=== PATIENT | female | born 1970 | race Caucasian/White ===

== ENCOUNTER 2021-01-13 16:31 | Inpatient (IN) | payer BC, OTHER ==
[2021-01-13] MEDS ORDERED: KETOROLAC 15 MG/ML 1 ML VIAL IM STA (19:32)
[2021-01-13] MEDS ORDERED: SODIUM CHLORIDE 0.9% 1,000 ML IV STA (19:32)
[2021-01-13] MEDS ORDERED: AMPICILLIN-SULBACTAM 3 GM in SODIUM CHLORIDE 0.9% 100 ML IVPB STA (19:32)
--- NOTE | 2021-01-13 19:38 | ED ---
General Adult HPI - General Chief complaint: Recheck/Abnormal Lab/Rx Stated complaint: facial swelling Time Seen by Provider: 01/13/21 19:18 Source: patient Mode of arrival: ambulatory Limitations: no limitations - History of Present Illness Initial comments: 50-year-old female since to the emergency room for a chief complaint of facial swelling. Patient noticed facial swelling 3 days ago on the right side of the face. States she went to her primary care provider today who sent her to the emergency room for a CAT scan and a dose of IV antibiotics. Patient denies any dental pain. Admits to fevers and chills. States she did start antibiotics one hour ago but they have not helped.Patient has no other complaints at this time including shortness of breath, chest pain, abdominal pain, nausea or vomiting, headache, or visual changes. - Related Data Home Medications Medication Instructions Recorded Confirmed Acetaminophen [Tylenol] 650 mg PO Q6H PRN 01/13/21 01/13/21 Amoxic-Pot Clav 875-125Mg 1 tab PO Q12HR 01/13/21 01/13/21 [Augmentin 875-125] Famotidine [Pepcid] 20 mg PO BID 01/13/21 01/13/21 Ibuprofen [Motrin Ib] 400 mg PO Q8HR PRN 01/13/21 01/13/21 diphenhydrAMINE [Benadryl] 25 mg PO Q4H PRN 01/13/21 01/13/21 methylPREDNISolone [Medrol Dose See Taper PO DAILY 01/13/21 01/13/21 Pack] Allergies Allergy/AdvReac Type Severity Reaction Status Date / Time No Known Allergies Allergy Verified 01/13/21 20:45 Review of Systems ROS Statement: Those systems with pertinent positive or pertinent negative responses have been documented in the HPI. ROS Other: All systems not noted in ROS Statement are negative. Past Medical History Past Medical History: No Reported History History of Any Multi-Drug Resistant Organisms: None Reported Past Surgical History: Ablation Past Psychological History: No Psychological Hx Reported Smoking Status: Never smoker Past Alcohol Use History: Occasional Past Drug Use History: None Reported General Exam Limitations: no limitations General appearance: alert, in no apparent distress Head exam: Present: atraumatic Eye exam: Present: normal appearance, PERRL, EOMI. Absent: scleral icterus, conjunctival injection ENT exam: Present: normal oropharynx (I do not see any evidence of dental abscess), normal external ear exam, other (Patient has erythema and edema noted of the right maxillary area.) Neck exam: Present: normal inspection, full ROM. Absent: tenderness Respiratory exam: Present: normal lung sounds bilaterally. Absent: respiratory distress, wheezes Cardiovascular Exam: Present: regular rate, normal rhythm, normal heart sounds Course Vital Signs 01/13/21 01/13/21 18:00 19:47 Temperature 99.8 F H Pulse Rate 84 81 Respiratory 20 20 Rate Blood Pressure 123/72 125/86 O2 Sat by Pulse 99 99 Oximetry Medical Decision Making - Medical Decision Making Vitals are stable. Patient does have a low-grade fever. HPI and physical exam as documented. Pertinent for erythema and edema noted to the right maxillary area. CBC does show leukocytosis with a left shift. CMP unremarkable. Facial CT does show a 2.5 cm phlegmon versus developing abscess. Patient started on Unasyn and vancomycin. At this time we will admit patient for IV antibiotics. - Lab Data Result diagrams: 01/13/21 19:57 01/13/21 19:57 Lab Results 01/13/21 01/13/21 01/13/21 Range/Units 19:57 19:57 19:57 WBC 19.3 H (3.8-10.6) k/uL RBC 4.47 (3.80-5.40) m/uL Hgb 14.6 (11.4-16.0) gm/dL Hct 44.7 (34.0-46.0) % MCV 99.8 (80.0-100.0) fL MCH 32.5 (25.0-35.0) pg MCHC 32.6 (31.0-37.0) g/dL RDW 11.8 (11.5-15.5) % Plt Count 322 (150-450) k/uL MPV 8.4 Neutrophils % 80 % Lymphocytes % 12 % Monocytes % 5 % Eosinophils % 1 % Basophils % 0 % Neutrophils # 15.4 H (1.3-7.7) k/uL Lymphocytes # 2.3 (1.0-4.8) k/uL Monocytes # 1.0 (0-1.0) k/uL Eosinophils # 0.1 (0-0.7) k/uL Basophils # 0.1 (0-0.2) k/uL Sodium 136 L (137-145) mmol/L Potassium 4.0 (3.5-5.1) mmol/L Chloride 102 (98-107) mmol/L Carbon Dioxide 24 (22-30) mmol/L Anion Gap 10 mmol/L BUN 10 (7-17) mg/dL Creatinine 0.54 (0.52-1.04) mg/dL Est GFR (CKD-EPI)AfAm >90 (>60 ml/min/1.73 sqM) Est GFR (CKD-EPI)NonAf >90 (>60 ml/min/1.73 sqM) Glucose 135 H (74-99) mg/dL Plasma Lactic Acid Vasile 1.3 (0.7-2.0) mmol/L Calcium 9.5 (8.4-10.2) mg/dL Total Bilirubin 0.6 (0.2-1.3) mg/dL AST 21 (14-36) U/L ALT 20 (4-34) U/L Alkaline Phosphatase 41 (38-126) U/L Total Protein 7.7 (6.3-8.2) g/dL Albumin 4.3 (3.5-5.0) g/dL Disposition Clinical Impression: Facial cellulitis, Leukocytosis Narrative: phlegmon vs abscess Disposition: ADMITTED IP TO THIS HOSP Is patient prescribed a controlled substance at d/c from ED?: No Referrals: Torsten Walker MD [Primary Care Provider] - 1-2 days Time of Disposition: 21:56
[2021-01-13] MEDS ORDERED: KETOROLAC 15 MG/ML 1 ML VIAL IVP STA (20:16)
[2021-01-13 20:20] LABS: Basophils # (A) 0.1 k/uL (0-0.2); Basophils % (A) 0 %; Eosinophils # (A) 0.1 k/uL (0-0.7); Eosinophils % (A) 1 %; HCT 44.7 % (34.0-46.0); HGB 14.6 gm/dL (11.4-16.0); Lymphocytes # (A) 2.3 k/uL (1.0-4.8); Lymphocytes % (A) 12 %; MCH 32.5 pg (25.0-35.0); MCHC 32.6 g/dL (31.0-37.0); MCV 99.8 fL (80.0-100.0); Mean Platelet Volume 8.4; Monocytes % (A) 5 %; Neutrophils # (A) 15.4 k/uL (1.3-7.7); Neutrophils % (A) 80 %; Platelet Count 322 k/uL (150-450); RBC 4.47 m/uL (3.80-5.40); RDW 11.8 % (11.5-15.5); WBC 19.3 k/uL (3.8-10.6)
[2021-01-13 20:32] LABS: ALT 20 U/L (4-34); AST 21 U/L (14-36); African American GFR (CKD) >90 (>60 ml/min/1.73 sqM); Albumin 4.3 g/dL (3.5-5.0); Alkaline Phosphatase 41 U/L (38-126); Anion Gap 10 mmol/L; Blood Urea Nitrogen 10 mg/dL (7-17); Calcium 9.5 mg/dL (8.4-10.2); Carbon Dioxide 24 mmol/L (22-30); Chloride 102 mmol/L (98-107); Glucose 135 mg/dL (74-99); Non-African American GFR(CKD) >90 (>60 ml/min/1.73 sqM); Sodium 136 mmol/L (137-145); Total Bilirubin 0.6 mg/dL (0.2-1.3); Total Protein 7.7 g/dL (6.3-8.2)
--- NOTE | 2021-01-13 21:09 | CT ---
EXAMINATION TYPE: CT facial bones w con DATE OF EXAM: 01/13/2021 COMPARISON: None HISTORY: facial swelling under right eye CT DLP: 333.3 mGycm Automated exposure control for dose reduction was used. CONTRAST: Performed with IV Contrast, patient injected with 100 mL of Isovue 300. Images obtained from the bottom of the mandible to the top of the frontal sinuses without contrast. Submandibular salivary glands are symmetric. Parotid glands are symmetric. The epiglottis is normal. There is no evidence of a pharyngeal mass. The maxilla is intact. Nasal bone is intact. There is no e vidence of retro-orbital mass. There is no pathologic enhancement. There is subcutaneous density anterior to the right maxilla. This measures 2.5 cm in diameter with ce ntral lower attenuation area. I see no focal bone destruction. The temporomandibular joints are intac t. There is normal aeration of the mastoid sinuses. There is normal aeration of the epitympanic reces s bilaterally. Zygomatic arches appear normal. IMPRESSION: Rounded subcutaneous mass anterior to the right maxilla consistent with inflammatory process. This co uld be a phlegmon or developing abscess.
[2021-01-13] MEDS ORDERED: VANCOMYCIN IV PER PHARMACY 1 EACH MISC MISCELLANE PRN (21:54)
[2021-01-13] MEDS ORDERED: NALOXONE 0.4 MG/ML 1 ML VIAL IV PRN (22:30)
[2021-01-13] MEDS ORDERED: ONDANSETRON 4 MG/2 ML VIAL IVP PRN (22:30)
[2021-01-13] MEDS ORDERED: MORPHINE SULFATE 4 MG/ML SYRINGE IV PRN (22:30)
[2021-01-13] MEDS: SODIUM CHLORIDE 0.9% 1,000 ML IV SCH (22:41)
[2021-01-13] MEDS ORDERED: VANCOMYCIN 1,000 MG in SODIUM CHLORIDE 0.9% 250 ML IVPB ONE (23:00)
[2021-01-14] MEDS ORDERED: TEMAZEPAM 15 MG CAP PO STA (01:31)
[2021-01-14] MEDS: AMPICILLIN-SULBACTAM 3 GM in SODIUM CHLORIDE 0.9% 100 ML IVPB SCH ×4 (01:45→20:36)
[2021-01-14] MEDS: ACETAMINOPHEN IV (For NPO) 1,000 MG in EMPTY BAG 1 BAG IVPB SCH ×4 (02:16→20:16)
[2021-01-14] MEDS: SODIUM CHLORIDE 0.9% 1,000 ML IV SCH ×3 (05:45→20:30)
[2021-01-14] MEDS ORDERED: VANCOMYCIN 1,000 MG in SODIUM CHLORIDE 0.9% 250 ML IVPB SCH ×2 (07:00→18:00)
[2021-01-14] MEDS: KETOROLAC 15 MG/ML 1 ML VIAL IVP PRN ×3 (07:52→22:09)
[2021-01-14 09:10] LABS: Basophils # (A) 0.07 X 10*3/uL (0.00-0.10); Basophils % (A) 0.6 %; Eosinophils # (A) 0.15 X 10*3/uL (0.04-0.35); Eosinophils % (A) 1.2 %; HCT 37.1 % (37.2-46.3); HGB 11.9 g/dL (12.0-15.0); Lymphocytes % (A) 20.5 %; MCH 32.2 pg (27.0-32.0); MCHC 32.1 g/dL (32.0-37.0); MCV 100.3 fL (80.0-97.0); Monocytes # (A) 1.15 X 10*3/uL (0.20-1.00); Monocytes % (A) 9.4 %; Neutrophils # (A) 8.32 X 10*3/uL (1.80-7.70); Neutrophils % (A) 68.1 %; Platelet Count 260 X 10*3/uL (140-440); RDW 12.5 % (11.5-14.5); WBC 12.22 X 10*3/uL (4.50-10.00)
[2021-01-14 11:02] LABS: African American GFR (CKD) 132.6 (60.0-200.0); Anion Gap 11.5 mmol/L (4.00-12.00); BUN/Creat Ratio 14.4 Ratio (12.00-20.00); Blood Urea Nitrogen 7.2 mg/dL (9.0-27.0); C Reactive Protein 1.1 mg/dL (0.00-0.80); Calcium 8.1 mg/dL (8.7-10.3); Carbon Dioxide 19.5 mmol/L (21.6-31.8); Non-African American GFR(CKD) 114.4 (60.0-200.0); Potassium 3.9 mmol/L (3.5-5.5)
[2021-01-14 12:05] LABS: Erythrocyte Sedimentation Rate 18 mm/Hr (0-20)
[2021-01-14] MEDS: HYDROcodone/APAP 5-325MG 1 EACH TAB PO PRN ×2 (14:03→18:16)
[2021-01-14] MEDS: TEMAZEPAM 15 MG CAP PO SCH (20:30)
--- NOTE | 2021-01-14 22:07 | P.HPIM ---
History of Present Illness H&P Date: 01/14/21 Chief Complaint: Facial swelling 50-year-old female with no significant past medical history was sent to the emergency department for further diagnostic workup due to increased facial swelling over 3 day period with associated erythema, periorbital swelling, and intermittent fever and chills. Patient had extensive diagnostic workup in the emergency department revealing leukocytosis with a mild left shift, CT of the facial revealed phlegmon vs abscess. Patient was initiated on Unasyn 3 g every 6 hours IV piggyback, and vancomycin dose per pharmacy. 01/14/2021 She is seen and examined at bedside. Patient resting comfortably in bed with no acute signs of distress. Patient endorses chills, facial discomfort, cephalgia, and generalized malaise. Patient denies shortness of breath, chest pain, palpitations, abdominal pain, nausea or diarrhea at this time. Review diagnostic labs white count trending down, mildly elevated Pro calcitonin at 0.10, and mildly elevated CRP at 1.10. Patient tolerating antibiotic therapy with no acute reactions noted Review of Systems Constitutional: Reports chills, Reports fever, Reports weakness Ears, nose, mouth and throat: Reports headache, Reports nasal congestion, Reports sinus pressure Cardiovascular: Reports as per HPI Respiratory: Reports congestion Gastrointestinal: Reports as per HPI Genitourinary: Reports as per HPI Menstruation: Reports as per HPI Musculoskeletal: Reports as per HPI Neurological: Reports headaches Psychiatric: Reports anxiety Endocrine: Reports as per HPI Hematologic/Lymphatic: Reports lymphadenopathy Allergic/Immunologic: Reports as per HPI Past Medical History Past Medical History: No Reported History History of Any Multi-Drug Resistant Organisms: None Reported Past Surgical History: Orthopedic Surgery, Uterine Ablation Additional Past Surgical History / Comment(s): Left arm surgery. Past Anesthesia/Blood Transfusion Reactions: No Reported Reaction Past Psychological History: Depression Smoking Status: Former smoker Past Alcohol Use History: Occasional Additional Past Alcohol Use History / Comment(s): Pt states she drinks 3 glasses of wine a day and has never had withdrawals. Past Drug Use History: None Reported Medications and Allergies Home Medications and Allergies Comment(s): Medications and ALLERGIES reviewed Home Medications Medication Instructions Recorded Confirmed Type Acetaminophen [Tylenol] 650 mg PO Q6H PRN 01/13/21 01/13/21 History Amoxic-Pot Clav 875-125Mg 1 tab PO Q12HR 01/13/21 01/13/21 History [Augmentin 875-125] Famotidine [Pepcid] 20 mg PO BID 01/13/21 01/13/21 History Ibuprofen [Motrin Ib] 400 mg PO Q8HR PRN 01/13/21 01/13/21 History diphenhydrAMINE [Benadryl] 25 mg PO Q4H PRN 01/13/21 01/13/21 History methylPREDNISolone [Medrol Dose See Taper PO DAILY 01/13/21 01/13/21 History Pack] Allergies Allergy/AdvReac Type Severity Reaction Status Date / Time No Known Allergies Allergy Verified 01/13/21 20:45 Physical Exam Vitals: Vital Signs Temp Pulse Pulse Resp BP BP Pulse Ox 01/14/21 20:00 16 01/14/21 19:55 98.4 F 59 L 16 122/65 98 01/14/21 13:36 98.2 F 73 18 107/71 97 01/14/21 07:00 98.3 F 65 18 110/69 100 01/14/21 01:59 98.2 F 82 16 116/79 100 01/13/21 23:31 74 16 01/13/21 23:21 98.3 F 74 16 114/74 97 01/13/21 22:22 99.8 F H 71 20 116/77 98 Intake and Output 01/14/21 01/14/21 01/14/21 06:59 14:59 22:59 Intake Total 400 360 90 Balance 400 360 90 Intake: Oral 400 360 90 Other: Voiding Method Toilet Toilet # Voids 2 1 Weight 60.328 kg - Constitutional General appearance: cooperative - EENT Right-sided facial swelling with erythema noted Eyes: EOMI, PERRLA ENT: pharyngeal erythema Ears: bilateral: normal - Neck Neck: normal ROM Carotids: bilateral: upstroke normal Thyroid: bilateral: normal size - Respiratory Respiratory: bilateral: CTA (Anterior and posterior lung boyce) - Cardiovascular Heart rate: 74 Rhythm: regular Heart sounds: normal: S1, S2 radial pulse Peripheral Pulses: bilateral: Normal dorsalis pedis Peripheral Pulses: bilateral: Normal - Gastrointestinal General gastrointestinal: normal bowel sounds, soft - Integumentary Integumentary: flushed, rash - Neurologic Neurologic: CNII-XII intact - Musculoskeletal Musculoskeletal: gait normal - Psychiatric Psychiatric: A&O x's 3, appropriate affect, intact judgment & insight Results CBC & Chem 7: 01/14/21 05:57 01/14/21 05:57 Labs: Abnormal Lab Results - Last 24 Hours (Table) 01/14/21 01/14/21 01/14/21 Range/Units 05:57 05:57 05:57 WBC 12.22 H (4.50-10.00) X 10*3/uL RBC 3.70 L (4.10-5.20) X 10*6/uL Hgb 11.9 L (12.0-15.0) g/dL Hct 37.1 L (37.2-46.3) % MCV 100.3 H (80.0-97.0) fL MCH 32.2 H (27.0-32.0) pg Neutrophils # 8.32 H (1.80-7.70) X 10*3/uL Monocytes # 1.15 H (0.20-1.00) X 10*3/uL Carbon Dioxide 19.5 L (21.6-31.8) mmol/L BUN 7.2 L (9.0-27.0) mg/dL Creatinine 0.5 L (0.6-1.5) mg/dL Calcium 8.1 L (8.7-10.3) mg/dL C-Reactive Protein 1.10 H (0.00-0.80) mg/dL Procalcitonin 0.10 H (0.02-0.09) ng/mL Comments: CT facial Thrombosis Risk Factor Assmnt - Choose All That Apply Each Factor Represents 1 point: Age 41-60 years Thrombosis Risk Factor Assessment Total Risk Factor Score: 1 Thrombosis Risk Factor Assessment Level: Low Risk Assessment and Plan Assessment: Facial cellulitis Leukocytosis phlegmon or abscess noted on CT facial Plan: Facial cellulitis, continue antibiotic therapy; consultation with infectious disease and ENT for recommendations Leukocytosis continue to trend white blood cell counts Continue medication management Continue medical management Continue to monitor vital signs and diagnostic testing Further recommendations Based on patient's clinical condition Time with Patient: Greater than 30
--- NOTE | 2021-01-15 00:07 | P.CONS ---
History of Present Illness - Reason for Consult Consult date: 01/14/21 facial abscess Requesting physician: Seth Murrell - Chief Complaint right sided facial pain and redness x 3 days - History of Present Illness History of present illness : Patient is 50-year-old female presenting to the ER last night for evaluation of painful swelling to the right side of the face, this started about 3 days ago patient denies having history of any trauma patient did have an area of swelling and redness induration seem to have progressively increased in size becoming more painful patient described the pain to be more of a dull aching with throbbing 6-7 out of 10 had no radiation patient did have associated swelling redness but no open wound or any drainage patient denies having sinus congestion he denies having any dental pain or any pain on chewing with the symptom the patient presented to hospital on arrival to the ER patient did have low-grade fever of 99.8 F patient did have white count of 19 point 3 repeat is around 12.2 with a left shift creatinine 0.5 simons PCR was normal negative patient did have a facial CT rounded subcutaneous mass anterior to the right maxilla consistent with inflammatory process could be palpable or developing abscess patient was started on Unasyn and vancomycin infectious disease was consulted for further management of antibiotic therapy Review of system: CONSTITUTIONAL: Positive for weakness along with the fever. EYES: No complaint. ENT: As per history of present illness. RESPIRATORY: No complaint. CARDIOVASCULAR: No complaint. GENITOURINARY: No complaint. GASTROINTESTINAL: No complaint. MUSCULOSKELETAL: No complaint. INTEGUMENTARY: No complaint. PSYCHOLOGIC: No complaint. ENDOCRINE: No complaint. NEUROLOGIC: No complaint. Past medical history : Reviewed, documented below Past surgical history : Reviewed, documented below Social history: Reviewed, documented below Medications: Reviewed, as documented below EXAMINATION: Vital sigans= Reviewed and documented below GENERAL DESCRIPTION: Middle-aged female lying in bed, no distress. No tachypnea or accessory muscle of respiration use. HEENT: Shows Pallor , no scleral icterus. Oral mucous membrane is dry. Right-sided facial swelling induration minimal redness and tenderness no fluctuation or drainage was noticed NECK: Trachea central, no thyromegaly. LUNGS: Unlabored breathing. Clear to auscultation anteriorly. No wheeze or crackle. HEART: S1, S2, regular rate and rhythm. ABDOMEN: Soft, no tenderness , guarding or rigidity EXTREMITIES: No edema of feet. SKIN: No rash, no masses palpable. NEUROLOGICAL: The patient is awake, alert, oriented x3, mood and affect normal. LABS AND RADIOLOGY: Reviewed results see below Assessment : Patient with right facial abscess and cellulitis possibly related to gram-positive skin kandice patient currently do not have resulted for MRSA infection and no evidence of any dental abnormality was noticed on the right upper jaw Plan: 1-Marked area of the induration 2-discontinue vancomycin 3-continue with Unasyn 3 g every 6 hours We will follow on clinical condition and cultures to further adjust medication if needed Thank you for this consultation we will follow the patient along with you Past Medical History Past Medical History: No Reported History History of Any Multi-Drug Resistant Organisms: None Reported Past Surgical History: Orthopedic Surgery, Uterine Ablation Additional Past Surgical History / Comment(s): Left arm surgery. Past Anesthesia/Blood Transfusion Reactions: No Reported Reaction Past Psychological History: Depression Smoking Status: Former smoker Past Alcohol Use History: Occasional Additional Past Alcohol Use History / Comment(s): Pt states she drinks 3 glasses of wine a day and has never had withdrawals. Past Drug Use History: None Reported Medications and Allergies Home Medications Medication Instructions Recorded Confirmed Type Acetaminophen [Tylenol] 650 mg PO Q6H PRN 01/13/21 01/13/21 History Amoxic-Pot Clav 875-125Mg 1 tab PO Q12HR 01/13/21 01/13/21 History [Augmentin 875-125] Famotidine [Pepcid] 20 mg PO BID 01/13/21 01/13/21 History Ibuprofen [Motrin Ib] 400 mg PO Q8HR PRN 01/13/21 01/13/21 History diphenhydrAMINE [Benadryl] 25 mg PO Q4H PRN 01/13/21 01/13/21 History methylPREDNISolone [Medrol Dose See Taper PO DAILY 01/13/21 01/13/21 History Pack] Allergies Allergy/AdvReac Type Severity Reaction Status Date / Time No Known Allergies Allergy Verified 01/13/21 20:45 Physical Exam Vitals: Vital Signs Temp Pulse Pulse Resp BP BP Pulse Ox 01/14/21 07:00 98.3 F 65 18 110/69 100 01/14/21 01:59 98.2 F 82 16 116/79 100 01/13/21 23:31 74 16 01/13/21 23:21 98.3 F 74 16 114/74 97 01/13/21 22:22 99.8 F H 71 20 116/77 98 01/13/21 19:47 81 20 125/86 99 01/13/21 18:00 99.8 F H 84 20 123/72 99 Intake and Output 01/13/21 01/14/21 01/14/21 22:59 06:59 14:59 Intake Total 400 240 Balance 400 240 Intake: Oral 400 240 Other: Voiding Method Toilet # Voids 2 0 Weight 60.328 kg 60.328 kg Results CBC & Chem 7: 01/14/21 05:57 01/14/21 05:57 Labs: Abnormal Lab Results - Last 24 Hours (Table) 01/13/21 01/13/21 01/14/21 Range/Units 19:57 19:57 05:57 WBC 19.3 H 12.22 H (3.8-10.6) k/uL RBC 3.70 L (4.10-5.20) X 10*6/uL Hgb 11.9 L (12.0-15.0) g/dL Hct 37.1 L (37.2-46.3) % MCV 100.3 H (80.0-97.0) fL MCH 32.2 H (27.0-32.0) pg Neutrophils # 15.4 H 8.32 H (1.3-7.7) k/uL Monocytes # 1.15 H (0.20-1.00) X 10*3/uL Sodium 136 L (137-145) mmol/L Glucose 135 H (74-99) mg/dL
[2021-01-15] MEDS: AMPICILLIN-SULBACTAM 3 GM in SODIUM CHLORIDE 0.9% 100 ML IVPB SCH ×4 (02:34→20:01)
[2021-01-15] MEDS: KETOROLAC 15 MG/ML 1 ML VIAL IVP PRN ×3 (06:08→21:22)
[2021-01-15] MEDS: HYDROcodone/APAP 5-325MG 1 EACH TAB PO PRN (08:40)
[2021-01-15] MEDS: SODIUM CHLORIDE 0.9% 1,000 ML IV SCH ×2 (08:41→22:30)
[2021-01-15 09:38] LABS: Basophils # (A) 0.1 k/uL (0-0.2); Basophils % (A) 1 %; Eosinophils # (A) 0.3 k/uL (0-0.7); Eosinophils % (A) 3 %; HCT 42.2 % (34.0-46.0); HGB 13.4 gm/dL (11.4-16.0); Lymphocytes % (A) 20 %; MCH 33.1 pg (25.0-35.0); MCHC 31.8 g/dL (31.0-37.0); MCV 103.8 fL (80.0-100.0); Macrocytosis Slight; Mean Platelet Volume 8.9; Monocytes # (A) 0.4 k/uL (0-1.0); Monocytes % (A) 4 %; Neutrophils # (A) 7.1 k/uL (1.3-7.7); Neutrophils % (A) 71 %; Platelet Count 268 k/uL (150-450); RBC 4.07 m/uL (3.80-5.40); RDW 11.7 % (11.5-15.5)
[2021-01-15 10:33] LABS: Chloride 108 mmol/L (98-107)
[2021-01-15 10:35] LABS: ALT 32 U/L (4-34); AST 37 U/L (14-36); African American GFR (CKD) >90 (>60 ml/min/1.73 sqM); Albumin/Globulin Ratio 1.3; Alkaline Phosphatase 38 U/L (38-126); Anion Gap 10 mmol/L; Blood Urea Nitrogen 8 mg/dL (7-17); Calcium 8.6 mg/dL (8.4-10.2); Carbon Dioxide 21 mmol/L (22-30); Globulin 3.1 g/dL; Glucose 121 mg/dL (74-99); Non-African American GFR(CKD) >90 (>60 ml/min/1.73 sqM); Potassium 3.8 mmol/L (3.5-5.1); Sodium 139 mmol/L (137-145); Total Bilirubin 0.6 mg/dL (0.2-1.3); Total Protein 7.1 g/dL (6.3-8.2)
--- NOTE | 2021-01-15 16:46 | PN ---
PROGRESS NOTE DATE OF SERVICE: 01/15/2021 REASON FOR FOLLOWUP: Right facial abscess cellulitis. INTERVAL HISTORY: Patient is afebrile. The patient is status post aspirate of the area by . Patient's culture is pending. Patient denies any chest pain. No shortness of breath or cough. No abdominal pain. No diarrhea. PHYSICAL EXAMINATION: Blood pressure 114/72, pulse of 60, temperature 98.1. She is 97% on room air. General is a middle-aged female up in the bed in no distress. HEENT examination: Right facial swelling and induration has decreased. Lungs unlabored breathing. Clear to auscultation anteriorly. Heart S1, S2. Regular rate and rhythm. Abdomen soft, no tenderness. LABS: White count 13.2, hemoglobin is 10, creatinine 0.53. DIAGNOSTIC IMPRESSION AND PLAN: Patient with right-sided facial abscess likely from the right upper jaw infected tooth, status post drainage of the abscess. Those cultures are pending. Patient to continue with Unasyn while waiting for the culture to finalize. Monitor clinical course closely. MMODL / IJN: [id number] /
--- NOTE | 2021-01-15 18:16 | OP ---
OPERATIVE REPORT DATE OF SERVICE: 01/14/2021. SURGEON: Kalyan Gould D.O. PREOPERATIVE DIAGNOSIS: Right facial abscess. POSTOPERATIVE DIAGNOSIS: Right facial abscess. OPERATIVE PROCEDURE: Incision and drainage of right facial abscess performed intraorally. ANESTHESIA: Local. BLOOD LOSS: Minimal. SPECIMENS REMOVED: Purulent material was removed. COMPLICATIONS: None. CONSENT: All risks, benefits and alternative therapies were discussed. Consent was obtained and all questions were answered. INDICATIONS: This patient has an expanding facial abscess which appears to be from an odontogenic etiology. Intraoral drainage was appropriate, as the abscess is formed to a point of over 2 cm. OPERATIVE FINDINGS: The patient had a fluctuant abscess over the right canine fossa and tenderness to the root of tooth #6. OPERATIVE PROCEDURE DESCRIPTION: This patient was placed in a semi-upright position. The right cheek had an infraorbital nerve block performed and an incision was made in the gingival labial sulcus. Purulent material was found and the opening was widened with a hemostat and a tremendous amount of purulent material was removed from this abscess and cultured and sent for sensitivity. This entire abscess was drained completely. The patient tolerated this well. Followup will be in my office on an as-needed basis outpatient, but I do think a dental evaluation is needed. MMODL / IJN: [id number] /
--- NOTE | 2021-01-15 18:31 | CONS ---
CONSULTATION REFERRING PHYSICIAN: Dr. Quintanilla. CHIEF COMPLAINT: Facial swelling. HISTORY OF PRESENT ILLNESS: This patient is a 50-year-old white female who presented to the emergency room on January 13 with some swelling to the face with associated pain, started about 3 days prior to presentation to the emergency room. She points to the right midportion of the cheek were it began and it has become more swollen and more painful over the last 2-3 days. She denies any other symptomatology. Denies any sinonasal issues. Denies any dental pain or any other issues. She denies any skin manifestations as a precursor to the swelling and she presents for evaluation. I did review her CT scan showing what appears to be an inflammatory process and phlegmon over the right canine fossa. REVIEW OF SYSTEMS: All 12 review of systems were unremarkable and are as above. PAST MEDICAL HISTORY: Negative. SURGICAL HISTORY: Positive for orthopedic surgery and uterine ablation, left arm surgery. SOCIAL HISTORY: Former smoker. Occasionally uses alcohol. ALLERGIES: Allergies are none. MEDICATIONS: Prior to admission are Tylenol, Augmentin, Pepcid, ibuprofen, Benadryl, and Medrol Dosepak. PHYSICAL EXAMINATION: Vital signs are stable. Patient is afebrile. Blood pressure 110/69, pulse 65, respirations 18, temperature 98.3. GENERAL: Patient is alert, oriented, white female in no apparent distress. Well nourished, well developed. No gross abnormalities. HEAD: Normocephalic. The face is asymmetric. There is swelling over the right malar eminence and canine fossa are tender to touch. EARS: Auricles are well formed. The canals are clear. Tympanic membranes without bulging or retraction. NOSE is patent. No tumors, polyps, or masses. MOUTH AND THROAT: The patient has tenderness overlying the superior root of tooth #6 emanating into the canine fossa. No other dental abnormalities are seen. There is some gingival inflammation in that region. No oral lesions are seen. Posterior pharynx is unremarkable. NECK: Unremarkable. No tumors or masses. NEUROLOGIC: Cranial nerves 2-12 intact. PSYCHOLOGIC: Oriented x3. No anxiety issues etc. IMPRESSIONS: Right facial swelling with associated pain. Rule out odontogenic etiology i.e. tooth #6. PLAN OF TREATMENT: After consent, the patient allowed me to perform an intraoral incision and drainage of this abscess is located in the right canine fossa. I strongly suspect this is an odontogenic etiology and most likely the right canine is the etiology. I opened this area with a hemostat and a 15 blade and drained a large amount of purulent material. I did get a culture and sensitivity from this material and we expressed all the purulence out of this abscess. The patient appears to be on appropriate antibiotics and will be better directed after the cultures are obtained. The patient tolerated this well. I did recommend that this patient see her general dentist or an oral surgeon or maths tutor if the problems are persistent on an outpatient basis. Thank you very much for allowing me to participate in the care of this patient. Continue treatment with Unasyn and vancomycin I think it would be an appropriate continued treatment and the patient is to contact me as needed after discharge. I see no further need for my services since the purulent material has been drained and cultures have been taken. I would be happy to see the patient back if any changes should arise, please do not hesitate to re-consult me if any issues arise. MMODL / IJN: [id number] /
--- NOTE | 2021-01-15 20:28 | P.PN ---
Subjective Progress Note Date: 01/15/21 Principal diagnosis: Facial cellulitis Leukocytosis Dental abscess drained by ENT 50-year-old female with no significant past medical history was sent to the emergency department for further diagnostic workup due to increased facial swelling over 3 day period with associated erythema, periorbital swelling, and intermittent fever and chills. Patient had extensive diagnostic workup in the emergency department revealing leukocytosis with a mild left shift, CT of the facial revealed phlegmon vs abscess. Patient was initiated on Unasyn 3 g every 6 hours IV piggyback, and vancomycin dose per pharmacy. 01/14/2021 She is seen and examined at bedside. Patient resting comfortably in bed with no acute signs of distress. Patient endorses chills, facial discomfort, cephalgia, and generalized malaise. Patient denies shortness of breath, chest pain, palpitations, abdominal pain, nausea or diarrhea at this time. Review diagnostic labs white count trending down, mildly elevated Pro calcitonin at 0.10, and mildly elevated CRP at 1.10. Patient tolerating antibiotic therapy with no acute reactions noted 01/15/2021 Patient is seen and examined at bedside. Dr. Mayfield performed incision and drainage of right facial abscess, with mild to moderate amount of purulent drainage noted per Dr. Mayfield. He should endorses facial discomfort, chills, and mild cephalgia intermittently. Patient is tolerating antibiotic therapy. Awaiting on cultures and sensitivity from incision and drainage of right facial abscess. Objective - Vital Signs Vital signs: Vital Signs Temp 98.3 F 01/15/21 19:03 Pulse 62 01/15/21 19:03 Resp 16 01/15/21 19:03 BP 113/71 01/15/21 19:03 Pulse Ox 98 01/15/21 19:03 Intake & Output 01/15/21 01/15/21 01/16/21 06:59 18:59 06:59 Intake Total 1000 360 Balance 1000 360 Intake: Oral 1000 360 Other: Voiding Method Toilet Toilet # Voids 3 1 1 - Constitutional General appearance: Present: cooperative, no acute distress - EENT Eyes: Present: EOMI, PERRLA, poor dentition, normal appearance Ears: bilateral: normal - Neck Neck: Present: normal ROM Carotids: bilateral: upstroke normal Thyroid: bilateral: normal size - Respiratory Respiratory: bilateral: CTA (Anterior and posterior lung boyce) - Cardiovascular Heart rate: 74 Rhythm: regular Heart sounds: normal: S1, S2 - Peripheral pulses radial pulse Peripheral Pulses: bilateral: Normal dorsalis pedis Peripheral Pulses: bilateral: Normal - Gastrointestinal General gastrointestinal: Present: normal bowel sounds, soft - Integumentary Integumentary: Present: normal - Neurologic Neurologic: Present: CNII-XII intact - Musculoskeletal Musculoskeletal: Present: gait normal - Psychiatric Psychiatric: Present: A&O x's 3, appropriate affect, intact judgment & insight - Allied health notes Allied health notes reviewed: nursing - Labs CBC & Chem 7: 01/15/21 09:13 01/15/21 09:13 Labs: Abnormal Lab Results - Last 24 Hours (Table) 01/15/21 01/15/21 Range/Units 09:13 09:13 MCV 103.8 H (80.0-100.0) fL Chloride 108 H (98-107) mmol/L Carbon Dioxide 21 L (22-30) mmol/L Glucose 121 H (74-99) mg/dL AST 37 H (14-36) U/L Microbiology - Last 24 Hours (Table) 01/14/21 17:30 Gram Stain - Preliminary Mouth Wound Culture - Preliminary 01/13/21 19:57 Blood Culture - Preliminary Blood No Growth after 24 hours 01/13/21 19:57 Blood Culture - Preliminary Blood No Growth after 24 hours Assessment and Plan Assessment: Facial cellulitis Leukocytosis phlegmon or abscess noted on CT facial Plan: Facial cellulitis, continue antibiotic therapy; consultation with infectious disease and ENT for recommendations, patient will require frequent monitoring of margins of facial cellulitis and intravenous IV antibiotics for moderate to severe facial cellulitis, will be awaiting cultures from incision and drainage performed by Dr. Mayfield. Leukocytosis continue to trend white blood cell counts Continue medication management Continue medical management Continue to monitor vital signs and diagnostic testing Further recommendations Based on patient's clinical condition Time with Patient: Greater than 30
[2021-01-15] MEDS: TEMAZEPAM 15 MG CAP PO SCH (21:23)
[2021-01-16] MEDS: AMPICILLIN-SULBACTAM 3 GM in SODIUM CHLORIDE 0.9% 100 ML IVPB SCH ×4 (02:27→19:11)
[2021-01-16] MEDS: KETOROLAC 15 MG/ML 1 ML VIAL IVP PRN (08:30)
[2021-01-16 10:47] LABS: Basophils # (A) 0.1 k/uL (0-0.2); Basophils % (A) 1 %; Eosinophils # (A) 0.2 k/uL (0-0.7); Eosinophils % (A) 2 %; HCT 39.4 % (34.0-46.0); HGB 12.7 gm/dL (11.4-16.0); Lymphocytes # (A) 1.9 k/uL (1.0-4.8); Lymphocytes % (A) 23 %; MCH 32.5 pg (25.0-35.0); MCHC 32.2 g/dL (31.0-37.0); MCV 100.9 fL (80.0-100.0); Mean Platelet Volume 8.7; Monocytes # (A) 0.5 k/uL (0-1.0); Monocytes % (A) 6 %; Neutrophils # (A) 5.4 k/uL (1.3-7.7); Neutrophils % (A) 65 %; Platelet Count 301 k/uL (150-450); RBC 3.91 m/uL (3.80-5.40); RDW 12.4 % (11.5-15.5); WBC 8.4 k/uL (3.8-10.6)
[2021-01-16 11:09] LABS: ALT 60 U/L (4-34); AST 54 U/L (14-36); African American GFR (CKD) >90 (>60 ml/min/1.73 sqM); Albumin 3.5 g/dL (3.5-5.0); Albumin/Globulin Ratio 1.2; Alkaline Phosphatase 42 U/L (38-126); Anion Gap 6 mmol/L; Blood Urea Nitrogen 12 mg/dL (7-17); Calcium 8.9 mg/dL (8.4-10.2); Carbon Dioxide 25 mmol/L (22-30); Chloride 109 mmol/L (98-107); Glucose 92 mg/dL (74-99); Non-African American GFR(CKD) >90 (>60 ml/min/1.73 sqM); Potassium 4.3 mmol/L (3.5-5.1); Sodium 140 mmol/L (137-145); Total Bilirubin 0.3 mg/dL (0.2-1.3); Total Protein 6.5 g/dL (6.3-8.2)
--- NOTE | 2021-01-16 13:08 | P.PN ---
Subjective Progress Note Date: 01/16/21 Principal diagnosis: Facial cellulitis Leukocytosis Dental abscess drained by ENT 50-year-old female with no significant past medical history was sent to the emergency department for further diagnostic workup due to increased facial swelling over 3 day period with associated erythema, periorbital swelling, and intermittent fever and chills. Patient had extensive diagnostic workup in the emergency department revealing leukocytosis with a mild left shift, CT of the facial revealed phlegmon vs abscess. Patient was initiated on Unasyn 3 g every 6 hours IV piggyback, and vancomycin dose per pharmacy. 01/14/2021 She is seen and examined at bedside. Patient resting comfortably in bed with no acute signs of distress. Patient endorses chills, facial discomfort, cephalgia, and generalized malaise. Patient denies shortness of breath, chest pain, palpitations, abdominal pain, nausea or diarrhea at this time. Review diagnostic labs white count trending down, mildly elevated Pro calcitonin at 0.10, and mildly elevated CRP at 1.10. Patient tolerating antibiotic therapy with no acute reactions noted 01/15/2021 Patient is seen and examined at bedside. Dr. Mayfield performed incision and drainage of right facial abscess, with mild to moderate amount of purulent drainage noted per Dr. Mayfield. He should endorses facial discomfort, chills, and mild cephalgia intermittently. Patient is tolerating antibiotic therapy. Awaiting on cultures and sensitivity from incision and drainage of right facial abscess. 01/16/2021 patient seen and examined at bedside. she is resting comfortable, with no acute signs of distress. patient endorses chills, facial discomfort, mild cephalgia. patient is tolerating antibiotic therapy with mild improvement. Objective - Vital Signs Vital signs: Vital Signs Temp 98.0 F 01/16/21 07:00 Pulse 54 L 01/16/21 07:00 Resp 18 01/16/21 08:00 BP 109/72 01/16/21 07:00 Pulse Ox 98 01/16/21 07:00 Intake & Output 01/15/21 01/16/21 01/16/21 18:59 06:59 18:59 Intake Total 360 500 Balance 360 500 Intake: Oral 360 500 Other: Voiding Method Toilet Toilet Toilet # Voids 1 2 - Constitutional General appearance: Present: cooperative, no acute distress - EENT Eyes: Present: EOMI, PERRLA Ears: bilateral: normal - Neck Neck: Present: normal ROM Carotids: bilateral: upstroke normal Thyroid: bilateral: normal size - Respiratory Respiratory: bilateral: CTA - Cardiovascular Heart rate: 87 Rhythm: regular Heart sounds: normal: S1, S2 - Peripheral pulses radial pulse Peripheral Pulses: bilateral: Normal dorsalis pedis Peripheral Pulses: bilateral: Normal - Gastrointestinal General gastrointestinal: Present: normal bowel sounds, soft - Integumentary Integumentary: Present: normal - Neurologic Neurologic: Present: CNII-XII intact - Musculoskeletal Musculoskeletal: Present: gait normal - Psychiatric Psychiatric: Present: A&O x's 3, appropriate affect, intact judgment & insight - Allied health notes Allied health notes reviewed: nursing - Labs CBC & Chem 7: 01/16/21 10:32 01/16/21 10:32 Labs: Abnormal Lab Results - Last 24 Hours (Table) 01/16/21 01/16/21 Range/Units 10:32 10:32 MCV 100.9 H (80.0-100.0) fL Chloride 109 H (98-107) mmol/L AST 54 H (14-36) U/L ALT 60 H (4-34) U/L Microbiology - Last 24 Hours (Table) 01/13/21 19:57 Blood Culture - Preliminary Blood No Growth after 48 hours 01/13/21 19:57 Blood Culture - Preliminary Blood No Growth after 48 hours 01/14/21 17:30 Gram Stain - Preliminary Mouth Wound Culture - Preliminary Assessment and Plan Assessment: Facial cellulitis Leukocytosis phlegmon or abscess noted on CT facial Plan: Facial cellulitis, continue antibiotic therapy; consultation with infectious disease and ENT for recommendations, patient will require frequent monitoring of margins of facial cellulitis and intravenous IV antibiotics for moderate to severe facial cellulitis, will be awaiting cultures from incision and drainage performed by Dr. Mayfield. Leukocytosis continue to trend white blood cell counts Continue medication management Continue medical management Continue to monitor vital signs and diagnostic testing Further recommendations Based on patient's clinical condition Time with Patient: Greater than 30
[2021-01-16] MEDS ORDERED: KETOROLAC 30 MG/ML 1 ML VIAL IVP PRN (17:34)
[2021-01-16] MEDS: TEMAZEPAM 15 MG CAP PO SCH (20:49)
--- NOTE | 2021-01-16 23:55 | PN ---
PROGRESS NOTE DATE OF SERVICE: 01/16/2021 REASON FOR FOLLOWUP: Right-sided facial cellulitis and abscess secondary to infected tooth. INTERVAL HISTORY: The patient is afebrile, breathing comfortably. Right-sided facial swelling and redness have decreased. No nausea, no vomiting. No abdominal pain or diarrhea. PHYSICAL EXAMINATION: Blood pressure is 113/70 with a pulse of 65, temperature of 98.9. She is 100% on room air. General description is a middle-aged female up in the room in no distress. Respiratory system: Unlabored breathing, clear to auscultation anteriorly. Heart S1, S2. Regular rate and rhythm. Abdomen soft, no tenderness. Right-sided facial swelling and redness decreased. LABS: Hemoglobin is 12.7, white count 8.4, creatinine 0.73. Cultures are currently pending. DIAGNOSTIC IMPRESSION AND PLAN: Patient with right-sided facial cellulitis, possibly related to the infected tooth, right upper jaw, improving with Unasyn; to continue. Will wait for the culture to finalize to determine her discharge antibiotics. Continue with supportive care. MMODL / IJN: [id number] /
[2021-01-17] MEDS: AMPICILLIN-SULBACTAM 3 GM in SODIUM CHLORIDE 0.9% 100 ML IVPB SCH ×2 (01:06→08:15)
[2021-01-17 07:50] VITALS: BP 132/86; PULSE 52; RESP 18; TEMP 98.3
[2021-01-17 08:32] LABS: African American GFR (CKD) >90 (>60 ml/min/1.73 sqM); Anion Gap 8 mmol/L; Blood Urea Nitrogen 17 mg/dL (7-17); Calcium 9.1 mg/dL (8.4-10.2); Carbon Dioxide 20 mmol/L (22-30); Chloride 113 mmol/L (98-107); Glucose 91 mg/dL (74-99); Non-African American GFR(CKD) >90 (>60 ml/min/1.73 sqM); Sodium 141 mmol/L (137-145)
[2021-01-17 08:44] LABS: Potassium 4.6 mmol/L (3.5-5.1)
[2021-01-17] MEDS ORDERED: FLUCONAZOLE 100 MG TAB PO ONE (13:21)
--- NOTE | 2021-01-17 14:05 | PN ---
PROGRESS NOTE DATE OF SERVICE: 01/17/2021 REASON FOR FOLLOWUP: Right-sided facial abscess, cellulitis. INTERVAL HISTORY: The patient is afebrile. The patient is feeling better. Overall pain and discomfort to the right side of the face has decreased. The patient denies any chest pain, shortness of breath or cough. No abdominal pain or diarrhea. PHYSICAL EXAMINATION: Blood pressure 132/86, pulse of 52, temperature 98.3. She is 100% on room air. General description is a middle-aged female up in the room in no distress. HEENT examination: Right-sided facial swelling and induration are slightly decreased. Lungs: Unlabored breathing, clear to auscultation anteriorly. Heart S1, S2. Regular rate and rhythm. Abdomen soft, no tenderness. LABS: Culture done has been negative so far. Blood culture negative. White count normal. DIAGNOSTIC IMPRESSION AND PLAN: Patient with a right-sided facial abscess and cellulitis, likely from an infected tooth. Overall improvement on Unasyn. Transition to oral Augmentin for 2 weeks. Prescription sent to the pharmacy. Patient requesting Diflucan for yeast infection. Will give her a dose before discharge. Advised if any worsening swelling or redness after discharge and oral antibiotics to let us know right away. MMODL / IJN: [id number] /
[2021-01-17 14:49] LABS: Basophils % (A) 1.1 %; Eosinophils # (A) 0.22 X 10*3/uL (0.04-0.35); Eosinophils % (A) 2.4 %; HCT 39.9 % (37.2-46.3); HGB 12.5 g/dL (12.0-15.0); Lymphocytes # (A) 2.26 X 10*3/uL (0.90-5.00); Lymphocytes % (A) 24.8 %; MCH 32.1 pg (27.0-32.0); MCHC 31.3 g/dL (32.0-37.0); MCV 102.3 fL (80.0-97.0); Mean Platelet Volume 11.4 fL (9.5-12.2); Monocytes # (A) 0.83 X 10*3/uL (0.20-1.00); Monocytes % (A) 9.1 %; Neutrophils # (A) 5.69 X 10*3/uL (1.80-7.70); Neutrophils % (A) 62.4 %; Platelet Count 225 X 10*3/uL (140-440); RDW 12.4 % (11.5-14.5); WBC 9.12 X 10*3/uL (4.50-10.00)
--- NOTE | 2021-01-18 03:58 | P.DS ---
Providers Date of admission: 01/15/21 15:06 Expected date of discharge: 01/17/21 Attending physician: Torsten Walker Consults: 01/14/21 05:50 Consult Physician Urgent Consulting Provider: David Quintanilla Consult Reason/Comments: phlegmon vs abscess- antibiotic therapy Do you want consulting provider notified?: Yes 01/14/21 12:00 Consult Physician Urgent Consulting Provider: Alexey Campos Consult Reason/Comments: phlegmon vs abscess Do you want consulting provider notified?: Yes Primary care physician: Torsten Walker Hospital Course: Final Diagnosis Facial cellulitis status post dental abscess drainage Leukocytosis phlegmon or abscess noted on CT facial full code Discharge disposition Patient is being discharged in a stable condition with guarded prognosis to home. Patient will follow-up with Dr. Walker in the outpatient setting upon discharge. Patient is to follow up with ID and dental on discharge. Patient will continue on oral antibiotics in the form of Augmentin twice daily for 14 days to complete the course. Total time taken is greater than 35 minutes. Hospital course 50-year-old female with no significant past medical history was sent to the emergency department for further diagnostic workup due to increased facial swelling over 3 day period with associated erythema, periorbital swelling, and intermittent fever and chills. Patient had extensive diagnostic workup in the emergency department revealing leukocytosis with a mild left shift, CT of the facial revealed phlegmon vs abscess. Patient was initiated on Unasyn 3 g every 6 hours IV piggyback, and vancomycin dose per pharmacy. 01/14/2021 She is seen and examined at bedside. Patient resting comfortably in bed with no acute signs of distress. Patient endorses chills, facial discomfort, cephalgia, and generalized malaise. Patient denies shortness of breath, chest pain, palpitations, abdominal pain, nausea or diarrhea at this time. Review diagnostic labs white count trending down, mildly elevated Pro calcitonin at 0.10, and mildly elevated CRP at 1.10. Patient tolerating antibiotic therapy with no acute reactions noted 01/15/2021 Patient is seen and examined at bedside. Dr. Mayfield performed incision and drainage of right facial abscess, with mild to moderate amount of purulent drainage noted per Dr. Mayfield. He should endorses facial discomfort, chills, and mild cephalgia intermittently. Patient is tolerating antibiotic therapy. Awaiting on cultures and sensitivity from incision and drainage of right facial abscess. 01/16/2021 patient seen and examined at bedside. she is resting comfortable, with no acute signs of distress. patient endorses chills, facial discomfort, mild cephalgia. patient is tolerating antibiotic therapy with mild improvement. 01/17/2021 Patient seen this morning and showing some improvement in facial swelling. Patient to continue on oral Augmentin with close outpatient follow up with ID and dentist on discharge. Currently no reports of chest pain, shortness of breath, or palpitations. Patient is afebrile. No reports of nausea or vomiting and patient is tolerating diet. Patient will be discharged home today. Guarded prognosis. GENERAL: The patient is alert and oriented x3, no acute distress, well developed, well nourished HEENT: Pupils are round and equally reacting to light. EOMI. No scleral icterus. No conjunctival pallor. Right facial swelling noted CARDIOVASCULAR: S1 and S2 muffled PULMONARY: Clear to auscultation with no wheezing or rhonchi noted ABDOMEN: Soft, non-tender, non-distended, normoactive bowel sounds. No palpable organomegaly. MUSCULOSKELETAL: No joint swelling or deformity. EXTREMITIES: No cyanosis, clubbing, or edema noted NEUROLOGICAL: Gross neurological examination did not reveal any focal deficits. SKIN: No rashes or lesions noted Please refer to medication reconciliation sheet for a list of medications. Patient Condition at Discharge: Stable Plan - Discharge Summary New Discharge Prescriptions: New Amoxicillin/Potassium Clav [Augmentin 875-125 Tablet] 1 tab PO Q12HR 14 Days #28 tab HYDROcodone/APAP 5-325MG [[place] 5-325] 1 each PO Q6HR PRN #6 tab PRN Reason: Pain Continue diphenhydrAMINE [Benadryl] 25 mg PO Q4H PRN PRN Reason: Allergic Reaction Ibuprofen [Motrin Ib] 400 mg PO Q8HR PRN PRN Reason: Pain Or Fever > 100.5 Famotidine [Pepcid] 20 mg PO BID Amoxic-Pot Clav 875-125Mg [Augmentin 875-125] 1 tab PO Q12HR Acetaminophen [Tylenol] 650 mg PO Q6H PRN PRN Reason: Pain Or Fever > 100.5 Discontinued methylPREDNISolone [Medrol Dose Pack] See Taper PO DAILY Discharge Medication List Acetaminophen [Tylenol] 650 mg PO Q6H PRN 01/13/21 [History] Amoxic-Pot Clav 875-125Mg [Augmentin 875-125] 1 tab PO Q12HR 01/13/21 [History] Famotidine [Pepcid] 20 mg PO BID 01/13/21 [History] Ibuprofen [Motrin Ib] 400 mg PO Q8HR PRN 01/13/21 [History] diphenhydrAMINE [Benadryl] 25 mg PO Q4H PRN 01/13/21 [History] Amoxicillin/Potassium Clav [Augmentin 875-125 Tablet] 1 tab PO Q12HR 14 Days #28 tab 01/17/21 [Rx] HYDROcodone/APAP 5-325MG [[place] 5-325] 1 each PO Q6HR PRN #6 tab 01/17/21 [Rx] Follow up Appointment(s)/Referral(s): Torsten Walker MD [Primary Care Provider] - 01/21/21 11:20 am David Quintanilla MD [STAFF PHYSICIAN] - 01/27/21 3:15 pm (Need referral from for appointment.) Activity/Diet/Wound Care/Special Instructions: dental exam on tooth 6 as outpatient Activity Limited until follow-up Continue with antibiotics until finished Follow-up with infectious disease Dr. Quintanilla in one week Follow-up with the dentist as discussed Discharge Disposition: HOME SELF-CARE
== END 2021-01-17 14:54 | disposition home or self-care (01) | DRG 603 ==
LOC: EC 16:31 → 6NMEDSUR 21:25 → OBSVTOIN 01-15 15:06
PROVIDERS: ADMIT Family Medicine; ATTEND Family Medicine
PROC: 0W930ZX Drainage of Oral Cavity and Throat, Open Approach, Diagnostic (ICD-10-PCS; principal; 2021-01-15)
DX: L02.01 Cutaneous abscess of face (principal); L03.211 Cellulitis of face; B37.0 Candidal stomatitis; K04.7 Periapical abscess without sinus; R51.9 Headache, unspecified; F32.9 Major depressive disorder, single episode, unspecified; Z87.891 Personal history of nicotine dependence; Z98.890 Other specified postprocedural states; Z79.899 Other long term (current) drug therapy; Z20.822 Contact with and (suspected) exposure to COVID-19
CPT/HCPCS: 36415; 70487; 80048; 80053; 83605; 83735; 84145; 85025; 85652; 86140; 87040; 87070; 87075; 87205; 87635; 96361; 96365; 96375; 99285

== ENCOUNTER → 2023-12-03 | Outpatient (CLI) | payer BC ==
--- NOTE | 2023-12-05 22:14 | MM ---
Reason for Exam: Screening (asymptomatic). Last mammogram was performed 12 year(s) and 7 month(s) ago. Patient History: Menarche at age 13. First Full-Term at age 23. Patient has history of breast feeding. Patient used Hormonal Contraceptives for 1 year. Maternal aunt had breast cancer. Risk Values: Nguyen 5 year model risk: 1.0%. NCI Lifetime model risk: 8.7%. Prior Study Comparison: 04/22/2011 Bilateral MG screening mammo w CAD - 2, Unknown. Tissue Density: There are scattered areas of fibroglandular density. Findings: Analyzed By CAD. The pattern is symmetrical. Benign round calcifications within the right breast. There is a 0.5 cm rounded density upper outer middle right breast. Additional workup is recommended. Small nodular density may be within the medial left breast measuring 0.6 cm located 3 cm from the nipple. Overall Assessment: Incomplete: need additional imaging evaluation, BI-RAD 0 Management: Diagnostic Mammogram of both breasts. Diagnostic Breast Ultrasound of both breasts. A negative mammogram report should not preclude additional follow up of suspicious palpable abnormalities. Patient should continue monthly self breast exam. A clinical breast exam by your physician is recommended on an annual basis and results should be correlated with mammographic findings. Note on Nguyen scores and lifetime risk: 1. A Nguyen score greater than 3% is considered moderate risk. If this is the case, consider specialist referral to assess eligibility for a risk reducing agent. 2. If overall lifetime risk for the development of breast cancer is 20% or higher, the patient may qualify for future screening with alternating mammogram and breast MRI. [facility], , 12/05/2023 10:11 PM. Electronically signed and approved by: Miah Rubi D.O. Radiologis
== END | disposition home or self-care (01) ==
LOC: RADMAMWWP 12:33
PROVIDERS: ATTEND Family Medicine
CPT/HCPCS: 77067

== ENCOUNTER → 2023-12-16 | Outpatient (CLI) | payer BC ==
--- NOTE | 2023-12-16 13:48 | MM ---
Reason for Exam: Additional evaluation requested from prior study. Last screening mammogram was performed less than 1 month ago. Patient History: Menarche at age 13. First Full-Term at age 23. Patient has history of breast feeding. Patient used Hormonal Contraceptives for 1 year. Maternal aunt had breast cancer. Risk Values: Nguyen 5 year model risk: 1.0%. NCI Lifetime model risk: 8.7%. Prior Study Comparison: 04/22/2011 Bilateral MG screening mammo w CAD - 2, Unknown. 12/03/2023 Bilateral MG screening mammo w CAD, [facility]. Tissue Density: There are scattered areas of fibroglandular density. Findings: Analyzed By CAD. Upper outer quadrant right breast demonstrates nodular density 6 cm from the nipple measuring 6.5 mm. Ultrasound is recommended. Evaluation of the left breast demonstrates nodular density upper inner quadrant 4 cm from the nipple measuring 6 mm. Ultrasound is also recommended. Overall Assessment: Incomplete: need additional imaging evaluation, BI-RAD 0 Management: Diagnostic Breast Ultrasound of both breasts. . Results were given to the patient verbally at the time of exam. Patient should continue monthly self-breast exams. A clinical breast exam by your physician is recommended on an annual basis. This exam should not preclude additional follow-up of suspicious palpable abnormalities. Note on Nguyen scores and lifetime risk: 1. A Nguyen score greater than 3% is considered moderate risk. If this is the case, consider specialist referral to assess eligibility for a risk reducing agent. 2. If overall lifetime risk for the development of breast cancer is 20% or higher, the patient may qualify for future screening with alternating mammogram and breast MRI. [facility], , 12/16/2023 1:46 PM. Electronically signed and approved by: Raphael Albert M.D. Radiologis
--- NOTE | 2023-12-16 14:15 | USB ---
Reason for Exam: Additional evaluation requested from abnormal screening. Patient History: Menarche at age 13. First Full-Term at age 23. Patient has history of breast feeding. Patient used Hormonal Contraceptives for 1 year. Maternal aunt had breast cancer. Risk Values: Nguyen 5 year model risk: 1.0%. NCI Lifetime model risk: 8.7%. Prior Study Comparison: 04/22/2011 Bilateral MG screening mammo w CAD - 2, Unknown. 12/03/2023 Bilateral MG screening mammo w CAD, [facility]. Findings: The upper outer quadrant of the right breast, the upper inner quadrant of the left breast, the axilla of both breasts and the retroareolar of both breasts were scanned. No discrete right breast lesion identified at this time. Six-month follow-up mammography is recommended. The left breast demonstrates a hypoechoic lesion measuring 6 x 3 mm at the 10:00 position with internal echoes and could reflect complex cysts. Six-month follow-up ultrasound is advised.. Overall Assessment: Probably benign, BI-RAD 3 Management: Diagnostic Mammogram of the right breast. A clinical breast exam by your physician is recommended on an annual basis and results should be correlated with mammographic findings. This exam should not preclude additional follow-up of suspicious palpable abnormalities. Results were given to the patient verbally at the time of exam. [facility], , 12/16/2023 2:10 PM. Electronically signed and approved by: Raphael Albert M.D. Radiologis
== END | disposition home or self-care (01) ==
LOC: RADMAMWWP 13:19
PROVIDERS: ATTEND Family Medicine
CPT/HCPCS: 77062; 77066